=== PATIENT | male | born 1970 | race Caucasian/White ===

== ENCOUNTER 2022-08-16 19:51 | Observation (INO) ==
[2022-08-16] MEDS ORDERED: SODIUM CHLORIDE 0.9% 1,000 ML IV STA (21:39)
[2022-08-16] MEDS ORDERED: ONDANSETRON 4 MG/2 ML VIAL IV STA (21:39)
[2022-08-16 21:44] LABS: Basophils # 0.1 10*3/uL (0.0-0.2); Basophils % 0.6 % (0.0-0.8); Eosinophils # 0.5 10*3/uL (0.0-0.87); Eosinophils % 2.6 % (0.00-10.9); Hematocrit 48.3 VOL% (42.0-52.0); Hemoglobin 16.7 GM/DL (14.0-18.0); Immature Granulocytes % 0.3 %; Immature Granulocytes Absolute 0.05 #; Lymphocytes # 6.3 10*3/uL (1.4-4.0); Lymphocytes % 36.3 % (21.2-54.2); Mean Corpuscular HGB Conc 34.6 GM/DL (32-36); Mean Corpuscular Volume 89.6 FL (87-102); Mean Platelet Volume 10.8 FL (9.6-12.0); Monocytes # 1.2 10*3/uL (0.11-0.8); Monocytes % 6.8 % (1.7-12.7); Neutrophils % 53.4 % (38.7-73.9); Platelet Count 314 T/CUMM (130-400); Red Blood Count 5.39 MC/CUMM (3.8-5.5); Red Cell Distribution Width 13.7 % (9.3-17.3); White Blood Count 17.21 T/CUMM (4-12)
[2022-08-16 22:07] LABS: Albumin 4.4 G/DL (3.4-5.0); Calcium 10.5 MG/DL (8.5-10.1); Osmolality,Calculated 287.5 MOS/KG (273-304); Potassium 4.6 MMOL/L (3.5-5.1); Total Protein 8.7 G/DL (6.4-8.2)
[2022-08-16] MEDS ORDERED: MORPHINE 2 MG/1 ML SYRINGE IV STA ×2 (22:27→23:33)
[2022-08-17] MEDS ORDERED: metroNIDAZOLE INJ 500 MG/100 ML PREMIX IV STA (01:25)
[2022-08-17] MEDS ORDERED: LEVOFLOXACIN INJ 500 MG/100 ML PREMIX IV ONE (01:25)
[2022-08-17] MEDS ORDERED: ONDANSETRON 4 MG/2 ML VIAL IV STA (01:36)
[2022-08-17] MEDS ORDERED: DEXTROSE 10% 250 ML BAG IV PRN (02:25)
[2022-08-17] MEDS: MORPHINE 2 MG/1 ML SYRINGE IV PRN ×4 (03:06→21:57)
[2022-08-17 03:10] LABS: Basophils # 0.1 10*3/uL (0.0-0.2); Basophils % 0.6 % (0.0-0.8); Eosinophils # 0.5 10*3/uL (0.0-0.87); Eosinophils % 3.4 % (0.00-10.9); Lymphocytes # 6.8 10*3/uL (1.4-4.0); Lymphocytes % 46.6 % (21.2-54.2); Monocytes % 6.9 % (1.7-12.7); Neutrophils % 42.2 % (38.7-73.9); White Blood Count 14.53 T/CUMM (4-12)
[2022-08-17] MEDS: ONDANSETRON 4 MG/2 ML VIAL IV PRN ×2 (07:54→21:57)
[2022-08-17] MEDS: SODIUM CHLORIDE 0.9% 1,000 ML IV SCH ×3 (08:02→22:59)
[2022-08-17] MEDS: INSULIN REGULAR 100 UNIT/ML SUBCUT SCH ×4 (08:24→20:39)
[2022-08-17 09:30] LABS: Basophils # 0.1 10*3/uL (0.0-0.2); Basophils % 0.7 % (0.0-0.8); Eosinophils # 0.4 10*3/uL (0.0-0.87); Eosinophils % 3.7 % (0.00-10.9); Hematocrit 42.4 VOL% (42.0-52.0); Hemoglobin 14.7 GM/DL (14.0-18.0); Immature Granulocytes % 0.3 %; Immature Granulocytes Absolute 0.04 #; Lymphocytes # 3.8 10*3/uL (1.4-4.0); Lymphocytes % 32.8 % (21.2-54.2); Mean Corpuscular HGB Conc 34.7 GM/DL (32-36); Mean Corpuscular Volume 91.2 FL (87-102); Mean Platelet Volume 10.8 FL (9.6-12.0); Monocytes # 0.8 10*3/uL (0.11-0.8); Monocytes % 6.5 % (1.7-12.7); Platelet Count 232 T/CUMM (130-400); Red Blood Count 4.65 MC/CUMM (3.8-5.5); Red Cell Distribution Width 13.6 % (9.3-17.3); White Blood Count 11.62 T/CUMM (4-12)
[2022-08-17 09:51] LABS: Albumin 3.6 G/DL (3.4-5.0); Bilirubin,Total 1.3 MG/DL (0.20-1.00); Calcium 8.5 MG/DL (8.5-10.1); Osmolality,Calculated 286.3 MOS/KG (273-304); Potassium 3.9 MMOL/L (3.5-5.1); Total Protein 7.7 G/DL (6.4-8.2)
[2022-08-17] MEDS: ATORVASTATIN 80 MG TABLET PO SCH (10:24)
[2022-08-17] MEDS: PANTOPRAZOLE 40 MG TABLET PO SCH (10:24)
[2022-08-17] MEDS: GABAPENTIN 400 MG CAPSULE PO SCH ×4 (10:24→21:56)
[2022-08-17] MEDS: busPIRone 10 MG TABLET PO SCH ×4 (10:25→21:56)
[2022-08-17] MEDS: lisinopriL 20 MG TABLET PO SCH (10:25)
[2022-08-17] MEDS: metroNIDAZOLE INJ 500 MG/100 ML PREMIX IV SCH ×2 (10:27→17:08)
[2022-08-17] MEDS: AZELASTINE NASAL 137 MCG/SPRAY 30 ML BOTTLE BOTH NARES SCH ×2 (11:04→21:56)
[2022-08-17] MEDS ORDERED: POLYETHYLENE GLYCOL POWDER 255 GM BOTTLE PO ONE (18:00)
[2022-08-18] MEDS: metroNIDAZOLE INJ 500 MG/100 ML PREMIX IV SCH ×3 (01:21→16:41)
[2022-08-18] MEDS ORDERED: POLYETHYLENE GLYCOL POWDER 255 GM BOTTLE PO ONE (05:00)
[2022-08-18 06:07] LABS: Basophils # 0.1 10*3/uL (0.0-0.2); Basophils % 0.5 % (0.0-0.8); Eosinophils # 0.4 10*3/uL (0.0-0.87); Eosinophils % 4.1 % (0.00-10.9); Hematocrit 38.1 VOL% (42.0-52.0); Hemoglobin 13.3 GM/DL (14.0-18.0); Immature Granulocytes % 0.4 %; Immature Granulocytes Absolute 0.04 #; Lymphocytes # 3.1 10*3/uL (1.4-4.0); Lymphocytes % 29.4 % (21.2-54.2); Mean Corpuscular HGB Conc 34.9 GM/DL (32-36); Mean Corpuscular Volume 91.4 FL (87-102); Monocytes # 0.8 10*3/uL (0.11-0.8); Monocytes % 7.4 % (1.7-12.7); Neutrophils % 58.2 % (38.7-73.9); Platelet Count 219 T/CUMM (130-400); Red Blood Count 4.17 MC/CUMM (3.8-5.5); Red Cell Distribution Width 13.5 % (9.3-17.3); White Blood Count 10.47 T/CUMM (4-12)
[2022-08-18 06:19] LABS: PT Patient Result 11.4 SECS (10.1-12.1)
[2022-08-18 06:35] LABS: Albumin 3.4 G/DL (3.4-5.0); Bilirubin,Total 1.4 MG/DL (0.20-1.00); Osmolality,Calculated 280.3 MOS/KG (273-304); Potassium 3.5 MMOL/L (3.5-5.1); Total Protein 6.9 G/DL (6.4-8.2)
[2022-08-18] MEDS: INSULIN REGULAR 100 UNIT/ML SUBCUT SCH ×4 (07:44→20:28)
[2022-08-18] MEDS ORDERED: SODIUM CHLORIDE 0.9% 1,000 ML IV SCH (08:00)
[2022-08-18] MEDS: LEVOFLOXACIN INJ 500 MG/100 ML PREMIX IV SCH (09:40)
[2022-08-18] MEDS: MORPHINE 2 MG/1 ML SYRINGE IV PRN ×3 (09:46→20:28)
[2022-08-18] MEDS ORDERED: GLUCAGON 1 MG VIAL IM PRN (10:06)
[2022-08-18] MEDS ORDERED: DEXTROSE 50% 25 GM/50 ML VIAL IV PRN (10:06)
[2022-08-18] MEDS: AZELASTINE NASAL 137 MCG/SPRAY 30 ML BOTTLE BOTH NARES SCH ×2 (10:36→20:28)
[2022-08-18] MEDS: GABAPENTIN 400 MG CAPSULE PO SCH ×4 (11:51→20:28)
[2022-08-18] MEDS: busPIRone 10 MG TABLET PO SCH ×4 (11:51→20:28)
[2022-08-18] MEDS ORDERED: propofoL 200 MG/20 ML VIAL IV ONE ×2 (12:04)
[2022-08-18] MEDS ORDERED: LIDOCAINE 2% 5 ML VIAL ONE (12:04)
[2022-08-18] MEDS: ATORVASTATIN 80 MG TABLET PO SCH (14:57)
[2022-08-18] MEDS: lisinopriL 20 MG TABLET PO SCH (14:58)
[2022-08-18] MEDS: PANTOPRAZOLE 40 MG TABLET PO SCH (14:58)
[2022-08-18] MEDS: ONDANSETRON 4 MG/2 ML VIAL IV PRN (15:58)
[2022-08-18] MEDS: SODIUM CHLORIDE 0.9% 1,000 ML IV SCH (20:28)
[2022-08-19] MEDS: metroNIDAZOLE INJ 500 MG/100 ML PREMIX IV SCH ×2 (01:09→11:04)
[2022-08-19] MEDS: MORPHINE 2 MG/1 ML SYRINGE IV PRN (03:39)
[2022-08-19] MEDS: SODIUM CHLORIDE 0.9% 1,000 ML IV SCH ×2 (06:37→11:04)
[2022-08-19 07:17] LABS: Basophils # 0.1 10*3/uL (0.0-0.2); Basophils % 0.7 % (0.0-0.8); Eosinophils # 0.3 10*3/uL (0.0-0.87); Eosinophils % 4.1 % (0.00-10.9); Hematocrit 37.1 VOL% (42.0-52.0); Hemoglobin 12.5 GM/DL (14.0-18.0); Immature Granulocytes % 0.4 %; Immature Granulocytes Absolute 0.03 #; Lymphocytes # 3.1 10*3/uL (1.4-4.0); Lymphocytes % 36.8 % (21.2-54.2); Mean Corpuscular HGB Conc 33.7 GM/DL (32-36); Mean Corpuscular Volume 92.5 FL (87-102); Mean Platelet Volume 11.4 FL (9.6-12.0); Monocytes # 0.6 10*3/uL (0.11-0.8); Monocytes % 7.3 % (1.7-12.7); Neutrophils % 50.7 % (38.7-73.9); Platelet Count 201 T/CUMM (130-400); Red Blood Count 4.01 MC/CUMM (3.8-5.5); Red Cell Distribution Width 13.5 % (9.3-17.3); White Blood Count 8.36 T/CUMM (4-12)
[2022-08-19 07:28] LABS: Calcium 7.9 MG/DL (8.5-10.1); Osmolality,Calculated 286.1 MOS/KG (273-304); Potassium 3.6 MMOL/L (3.5-5.1)
[2022-08-19] MEDS: GABAPENTIN 400 MG CAPSULE PO SCH (09:49)
[2022-08-19] MEDS: lisinopriL 20 MG TABLET PO SCH (09:50)
[2022-08-19] MEDS: busPIRone 10 MG TABLET PO SCH (09:50)
[2022-08-19] MEDS: ATORVASTATIN 80 MG TABLET PO SCH (09:50)
[2022-08-19] MEDS: PANTOPRAZOLE 40 MG TABLET PO SCH (09:51)
[2022-08-19] MEDS: AZELASTINE NASAL 137 MCG/SPRAY 30 ML BOTTLE BOTH NARES SCH (09:52)
[2022-08-19] MEDS: INSULIN REGULAR 100 UNIT/ML SUBCUT SCH ×2 (09:52→12:55)
[2022-08-19] MEDS: LEVOFLOXACIN INJ 500 MG/100 ML PREMIX IV SCH (11:05)
[2022-08-19 12:36] VITALS: BP 142/77
== END 2022-08-19 12:55 | disposition home or self-care (01) ==
LOC: N.EDINP 19:51 → N.ED 19:51 → SUATTDRO 08-17 02:14 → N.2E 08-17 07:30
PROVIDERS: ADMIT Family Medicine; ATTEND Internal Medicine
PROC: COLONBX (2022-08-18 08:50)